=== PATIENT | female | born 1960 | race Hispanic/Latino ===

== ENCOUNTER → 2023-08-26 | Outpatient (CLI) | payer BC | END | disposition home or self-care (01) | LOC: RAH 10:39 | PROVIDERS: ATTEND Internal Medicine Gastroenterology | DX: K29.50 Unspecified chronic gastritis without bleeding (principal); R11.0 Nausea; R10.13 Epigastric pain | CPT/HCPCS: 78264; A9541 ==

== ENCOUNTER → 2025-08-14 | Outpatient (CLI) | payer BC | END | disposition home or self-care (01) | LOC: RAH 15:34 | PROVIDERS: ATTEND Family Medicine | DX: Z12.31 Encounter for screening mammogram for malignant neoplasm of breast (principal) | CPT/HCPCS: 77067 ==